=== PATIENT | male | born 1995 | race Hispanic/Latino ===

== ENCOUNTER 2021-03-30 12:40 | Emergency (ER) | payer SELFPAY ==
--- NOTE | ~2021-03-30 | XR_ITS ---
EXAMINATION: XR foot RT min 3V DATE: 03/30/2021 13:03 INDICATION: Right foot pain, initial encounter TECHNIQUE: Dorsoplantar, lateral, and 2 oblique views of the right foot were obtained. COMPARISON: None. FINDINGS: There is a transverse fracture in the head of the second proximal phalanx with approximatel y 1 mm of lateral displacement of the distal fracture fragment. Soft tissue swelling surrounds the fr acture. No additional acute osseous abnormality is identified. IMPRESSION: 1. Acute, minimally displaced transverse fracture in the head of the second proximal phalanx. Reviewed, dictated and finalized at location A. [employer] IMPRESSION: 1. Acute, minimally displaced transverse fracture in the head of the second pro ximal phalanx.
[2021-03-30 12:54] VITALS: BP 135/67; PULSE 50; RESP 16; TEMP 36.8; O2SAT 100
--- NOTE | 2021-03-30 12:55 | ED.LOWEXIN ---
HPI - Extremity Injury (Lower) General Chief Complaint: Extremity Injury, Lower Stated Complaint: Right foot Toe Pain Time Seen by Provider: 03/30/21 13:11 Source: patient Mode of arrival: ambulatory Limitations: no limitations History of Present Illness HPI Narrative: patient presents with right foot pain after playing soccer yesterday and kicking the soccer ball. pain to toes. no deformity some bruising slight swelling. denies any other discomfort. SMALL OPEN AREA TO BASE OF LEFT SECOND TOE. complaint: foot injury Injury: Right: foot Place: street/outdoors Severity: mild Related Data Allergies Allergy/AdvReac Type Severity Reaction Status Date / Time No Known Allergies Allergy Verified 03/30/21 12:56 Review of Systems Review of Systems: CONSTITUTIONAL: Denies fever, chills, or sweats. EYES: Denies visual changes, redness, or discharge. ENT: Denies rhinorrhea, congestion, sore throat, or otalgia. CARDIOVASCULAR: Denies chest pain, palpitations, or edema. RESPIRATORY: Denies cough or dyspnea. GASTROINTESTINAL: Denies abdominal pain, nausea, vomiting, or diarrhea. GENITOURINARY: Denies dysuria or hematuria. SKIN: Denies rash or itching. MUSCULOSKELETAL: Denies back pain, joint pain, or myalgia. NEUROLOGIC: Denies headache, numbness, or weakness. PSYCHIATRIC: Denies anxiety or depression. PMFSH Comments At time of signature, agree with nursing past medical, surgical, social and family history. There is no relevant family history pertinent to the presenting complaint Exam Narrative: GENERAL: Well-appearing, well-nourished, and in no acute distress. HEAD: Normocephalic, atraumatic. EYES: PERRLA and EOMI. ENT: Nares clear, no rhinorrhea or epistaxis. Mucous membranes moist. NECK: Supple. CHEST: Clear to auscultation. No respiratory distress. HEART: Regular rate and rhythm. No murmur heard. Normal peripheral pulses. ABDOMEN: Soft, nontender, nondistended, normal active bowel sounds. EXTREMITIES: Normal range of motion. BRUISING AND SLIGHT SWELLING TO TOES. SUPERFICIAL ABRASION TO LEFT SECOND TOE BASE.. NORMAL DP PULSE, NORMAL CAP REFILL. NORMAL SENSATION. bruising to toes slight swelling SKIN: Warm, dry, no rash. NEURO: No focal deficits. Alert and oriented x3. [place] Coma Scale Eye Opening: Spontaneous 4 [place] Coma Scale Motor: Obeys Commands 6 [place] Coma Scale Verbal: Oriented 5 [place] Coma Scale Total 15 Extrem: Ankle/foot/toe images: 1. superficial abrasion Course Vital Signs Vital signs: Vital Signs Temperature 36.8 C 03/30/21 12:54 Pulse Rate 50 L 03/30/21 12:54 Respiratory Rate 16 03/30/21 12:54 Blood Pressure 135/67 03/30/21 12:54 Pulse Oximetry 100 03/30/21 12:54 Temperature 36.8 C 03/30/21 12:54 Pulse Rate 50 L 03/30/21 12:54 Respiratory Rate 16 03/30/21 12:54 Blood Pressure 135/67 03/30/21 12:54 Pulse Oximetry 100 03/30/21 12:54 Acute, minimally displaced transverse fracture in the head of the second proximal phalanx. Addressed elevated BP today. Today's blood pressure higher than recommended range. Discussed importance of follow -up with PCP and possible fpc effects/cardiovascular events related to HTN. Currently patient denies headache, dizziness, vision changes, CP or shortness of breath. Critical dx considered and discussed with pt. Educated patient on red flag s/s and to go to ED if s/s occur. Discussed with pt when to return to [facility] or primary care provider. Pt gave verbal understanding, all questions were answered, and pt was agreeable to plan Splint applied by the tech - post splint exam normal, N/V/I. patient instructed to watch for increased pain, swelling, numbness, cool toes, change in color of toes. Elevation, ice discussed. MDM - Extremity Injury (Lower) MDM Narrative Medical decision making narrative: toe fracture toe contusion foot contusion Differential Diagnosis Di
== END 2021-03-30 13:35 | disposition home or self-care (01) ==
PROVIDERS: Emergency Provider Nurse Practitioner Family
DX: S90.121A Contusion of right lesser toe(s) without damage to nail, initial encounter (principal); S90.415A Abrasion, left lesser toe(s), initial encounter; W22.8XXA Striking against or struck by other objects, initial encounter; Y93.66 Activity, soccer
CPT/HCPCS: 73630; 99203; G0463